=== PATIENT | female | born 1980 | race Caucasian/White ===

== ENCOUNTER 2016-09-28 19:05 | Outpatient (CLI) | payer OTHER ==
[~2016-09-28] VITALS: Ht 205.2 cm; Wt 62.0 kg
[~2016-09-28 19:05] MED LIST: FERR240T9 PO; PREN1TAB13 PO
[2016-09-28 20:42] VITALS: BP 99/60; PULSE 84; RESP 16
[2016-09-28] MEDS ORDERED: CEPH500C PO (20:49)
[2016-09-28 21:18] LABS: ADD UMIC NO; UR ASCORBIC ACID 20 mg/dL (NEGATIVE); UR BACTERIA FEW /HPF (NONE SEEN); UR BILIRUBIN (Dip) NEGATIVE (NEGATIVE); UR BLOOD (Dip) NEGATIVE (NEGATIVE); UR CLARITY SLIGHTLY CLOUDY (CLEAR); UR COLOR YELLOW (YELLOW); UR GLUCOSE (Dip) 3+ mg/dL (NEGATIVE); UR KETONES (Dip) NEGATIVE (NEGATIVE); UR LEUKOCYTE ESTERASE (Dip) NEGATIVE Leu/ul (NEGATIVE); UR MUCUS FEW /HPF (NONE SEEN); UR NITRITE (Dip) NEGATIVE (NEGATIVE); UR RBC 0 /HPF (0-5); UR SPECIFIC GRAVITY (Dip) 1.029 (1.003-1.030); UR SQUAMOUS EPITHELIAL CELL MODERATE /HPF (FEW); UR TOTAL PROTEIN (Dip) NEGATIVE (NEGATIVE); UR UROBILINOGEN (Dip) 2+ mg/dL (NEGATIVE)
--- NOTE | 2016-09-28 21:27 | RADRPT ---
PROCEDURE: US biophysical profile. CLINICAL INDICATION: labor. well-being. TECHNIQUE: Multiple sonographic images of the uterus were obtained. The images were revi ewed on a PACS workstation. COMPARISON: Pelvic ultrasound 05/09/2015. FINDINGS: There is a single live intrauterine gestation. heart rate is 148 beats per minute. The position is breech. The placenta is anterior, grade 1. The DELMER is 12.6 cm. Breathing Movement: 2 Gross Body Movement: 2 Tone: 2 Qualitative Amniotic Fluid Volume: 2 TOTAL: 8 IMPRESSION: 1. Single viable intrauterine gestation. 2. Biophysical profile = 09/18. 3. DELMER = 12.6 cm. 4. The presentation is breech. RPTAT: HH .Nacho Oswald MD, MD Date Time Electronically viewed and signed by .Nacho Oswald MD, MD on 09/28/2016 21:27 .N/
[2016-09-28] MEDS ORDERED: LACTATED RINGER'S 1,000 ML IV ONE (21:30)
[2016-09-28] MEDS ORDERED: LACTATED RINGER'S 1,000 ML IV SCH (21:30)
[2016-09-28] MEDS ORDERED: CEFAZOLIN 2 GM/50 ML (PMX) 50 ML IVPB ONE (21:30)
--- NOTE | 2016-09-28 21:36 | PN ---
Triage Information Date/Time 09/28/16 Reason for visit: severe left breast pain with pus x1 vomiting been on keflex Weeks of Gestation 35w2d /Para x6 X1 C/S Diabetes: gestational Diabetes management: diet controlled Hypertention: none Objective Vital Signs Date Time Temp Pulse Resp B/P Pulse Ox O2 Delivery O2 Flow Rate FiO2 09/28/16 20:42 98.5 84 16 99/60 Room Air Heart Rate: 140's Contractions: None Exam left breast eythematous change on skin most of breast dion on medio inferior aspect with area of fluctuation with drainage prulent Results/Medications Results 24 hrs Laboratory Tests Test 09/28/16 19:15 Urine Color YELLOW Urine Clarity SLIGHTLY CLOUDY A Urine pH 6.0 Urine Specific [place] 1.029 Urine Ketones NEGATIVE Urine Nitrite NEGATIVE Urine Bilirubin NEGATIVE Urine Urobilinogen 2+ H Urine Leukocyte Esterase NEGATIVE Urine Microscopic RBC 0 Urine Microscopic WBC 1 Urine Squamous Epithelial Cells MODERATE Urine Calcium Oxalate Crystals FEW A Urine Bacteria FEW A Urine Mucus FEW A Urine Hemoglobin NEGATIVE Urine Glucose 3+ H Urine Total Protein NEGATIVE Medications Current Medications Lactated Ringer's 1,000 ml @ 1,000 mls/hr Q1H ONCE IV ; Start 09/28/16 at 21:30 ; Stop 09/28/16 at 22:29 Lactated Ringer's 1,000 ml @ 125 mls/hr Q8H IV ; Start 09/28/16 at 21:30 Cefazolin Sodium/ Dextrose (Ancef 2 Gm/50 ml (Pmx)) 50 ml @ 100 mls/hr ONCE ONCE IVPB ; Start 09/28/16 at 21:30; Stop 09/28/16 at 21:59 Imaging Results BPP 09/18 Disposition: Discharge Assessment/Plan IUP 35w2d left breast abscess with prulent discharge Plan culture from wound gram stain ,Hb a1c BS CBC CMP nasal swab for MRSA drainage of abscess IV fluid with ancef 2gm discharge home with po dicloxacillin 500mg q6hr for 7days JOI HACKETT MD Sep 28, 2016 21:35
--- NOTE | 2016-09-28 21:44 | QN ---
Documentation Comment under the proper preparation , gram stain and culture from abscess, lesion was prepped with betadine solution with marked compression of fluctuation area ,copious amount of prulent discharge for almost 10min continuously, leave the large space on inferior aspect of left breast. pressure dressing was applied on wound . patient tolerated procedure well. JOI HACKETT MD Sep 28, 2016 21:44
[2016-09-28 22:39] LABS: BASOPHILS % 0.1 % (0.0-2.0); EOSINOPHILS # 0.1 10^3/ul (0.0-0.5); EOSINOPHILS % 1.6 % (0.0-7.0); HEMATOCRIT 28.4 % (37.0-47.0); HEMOGLOBIN 9.2 g/dl (12.0-16.0); LYMPHOCYTES # 2.1 10^3/ul (0.8-2.9); LYMPHOCYTES % 24.2 % (15.0-51.0); MEAN CORPUSCULAR HEMOGLOBIN 29.2 pg (29.0-33.0); MEAN CORPUSCULAR HGB CONC 32.4 g/dl (32.0-37.0); MEAN CORPUSCULAR VOLUME 90.2 fl (82.0-101.0); MEAN PLATELET VOLUME 10.7 fl (7.4-10.4); MONOCYTE # 0.5 10^3/ul (0.3-0.9); MONOCYTES % 5.3 % (0.0-11.0); NEUTROPHILS % 68.2 % (39.0-77.0); PLATELET COUNT 268 10^3/UL (140-415); RED BLOOD COUNT 3.15 10^6/ul (4.20-5.40); RED CELL DISTRIBUTION WIDTH 15.5 % (11.5-14.5); WHITE BLOOD COUNT 8.5 10^3/ul (4.8-10.8)
[2016-09-28 23:03] LABS: ALBUMIN 3.4 g/dl (3.3-4.9); ALBUMIN/GLOBULIN RATIO 0.94; BILIRUBIN,INDIRECT 0.1 mg/dl (0-1.1); BILIRUBIN,TOTAL 0.1 mg/dl (0.2-1.3); CALCIUM 9.1 mg/dl (8.4-10.2); CREATININE 0.42 mg/dl (0.44-1.00); POTASSIUM 3.7 mmol/L (3.5-5.1)
== END 2016-09-29 00:10 | disposition home or self-care (01) ==
LOC: OBT 19:05 → L-D 19:07 → OBT 09-29 00:10
PROVIDERS: ATTEND Obstetrics & Gynecology
DX: O26.893 Other specified pregnancy related conditions, third trimester (principal); Z3A.35 35 weeks gestation of pregnancy; N64.4 Mastodynia; O24.410 Gestational diabetes mellitus in pregnancy, diet controlled
CPT/HCPCS: 36415; 76818; 80053; 81001; 83036; 85025; 87070; 96360; 96361; J0690; J7120; Z7500; 81003; 87205; G0463

== ENCOUNTER 2016-10-17 10:11 | Outpatient (CLI) | payer OTHER ==
[~2016-10-17] VITALS: Ht 152.4 cm; Wt 82.5 kg
[2016-10-17 10:45] VITALS: BP 113/67; PULSE 72; RESP 18; Ht 152.4 cm; Wt 82.5 kg
--- NOTE | 2016-10-17 10:45 | RADRPT ---
PROCEDURE: US OB biophysical profile. CLINICAL INDICATION: decreased movements, GDM TECHNIQUE: Multiple sonographic images of the pelvis were obtained. The images were reviewed on a PACS workstation. COMPARISON: US PELVIS 09/28/2016 FINDINGS: There is a single viable intrauterine gestation. Cardiac activity is present with 159 beats per min [place]. There is a breech presentation. The placenta is anterior. There is no evidence of placental abruption. There is a normal amount of amniotic fluid with an DELMER = 15.5 cm. Biophysical profile: movement 2/2 tone 2/2. breathing 2/2 DELMER 2/2 Total 09/18 RPTAT: AA . IMPRESSION: Normal biophysical profile. . .Cirilo Pimentel MD, MD Date Time Electronically viewed and signed by .Cirilo Pimentel MD, MD on 10/17/2016 10:45 .S/
--- NOTE | 2016-10-17 10:46 | RADRPT ---
PROCEDURE: US OB. CLINICAL INDICATION: Size and dates TECHNIQUE: Multiple sonographic images of the pelvis and gravid uterus were obtained. The images were reviewed on a PACS workstation. COMPARISON: US PELVIS 09/28/2016 FINDINGS: There is a single viable intrauterine gestation. Cardiac activity is present with 152 beats per min [place]. There is a breech presentation. The placenta is anterior. There is no evidence of placental abruption. There is a normal amount of amniotic fluid with an DELMER = 15.5 cm. Measurements were made in order to determine age. The results are as follows: BPD =9.0 cm HC =32.3 cm AC =34.5 cm FL =7.0 cm Estimated gestational age of approximately 36 weeks and 6 days based on ultrasound measurements. Clinical age: 38 weeks and 0 days. The estimated date of delivery is 11/08/2016, based on ultrasound measurements. The EFW = 3206 g, 47%, based on LMP age. RPTAT: AA IMPRESSION: Single viable intrauterine gestation of approximately 36 weeks and 6 days based on ultrasound measu rements. .Cirilo Pimentel MD, MD Date Time Electronically viewed and signed by .Cirilo Pimentel MD, MD on 10/17/2016 10:46 .S/
--- NOTE | 2016-10-17 12:24 | TRIAGE ---
OB Triage Datetime Report Generated by CPN: 10/17/2016 12:24 Datetime: 10/17/2016 11:29 Stage of : OB Triage Maternal Assessment Level of Consciousness: Fully Conscious Labor Evaluation Frequency: OCCASIONAL Monitor Mode: External Duration (sec)2399: 30-50 Quality: Mild Resting Tone [place]: Relaxed Heart Rate FHR Baseline Rate: 135 Monitor Mode: External US Variability: Moderate 6-25 bpm Accelerations: 15X15 Decelerations: None Pain Assessment Pain Scale: 0 Pain Goal: 3 Vaginal Exam Membrane Status: Intact Vaginal Bleeding: None Datetime: 10/17/2016 10:42 Assessment Type: Triage Maternal Assessment Level of Consciousness: Fully Conscious DTR's/Clonus: DTRs 2+; No Clonus Headache: Denies Blurred Vision: No Respiratory Effort: Unlabored; Regular Rhythm; Equal Expansion Breath Sounds, Left: Clear and Equal Breath Sounds, Right: Clear and Equal Nausea/Vomiting: Denies RUQ Epigastric Pain: Denies Lower Extremities Edema: None Degree: None Upper Extremities Edema: None Degree: None Facial Edema: None Fall Risk Assessment History of Falling: (0) No Secondary Diagnosis: (0) No Ambulatory Aid: (0) Bedrest/Nurse Assist IV Therapy: (0) No Gait: (0) Normal/Bedrest/Immobile Mental Status: (0) Oriented to Own Ability Fall Score: 0 Fall Risk Score Definition: No Risk: No action required Datetime: 10/17/2016 10:40 Time of Arrival: 10/17/2016 10:04 EGA: 38.0 Arrived By: Ambulatory Arrived From: Office Chief Complaint: pt sent from OB OFFICE FOR BPP/EFW FOR A1DM Movement: Present Contractions: Denies/Absent Rupture of Membranes: Denies Vaginal Bleeding: None Vaginal Discharge: Denies Recent Sexual Intercouse: Denies Abdominal Trauma: Not Applicable Patient Complaints: None Time Provider Notified: 10/17/2016 10:05 Provider Notified: ABUSLEME Initial Plan: NST/BPP/EFW Datetime: 10/17/2016 10:19 Monitor Mode: External Monitor Mode: External US Datetime: 09/28/2016 19:30 EGA: 35.2
--- NOTE | 2016-10-17 13:34 | PN ---
Triage Information Date/Time Reason for visit: NST/BPP Weeks of Gestation 38+ /Para 8/7 Diabetes: gestational Diabetes management: diet controlled Hypertention: none Objective Vital Signs Date Time Temp Pulse Resp B/P Pulse Ox O2 Delivery O2 Flow Rate FiO2 10/17/16 10:45 98.0 72 18 113/67 98 Room Air Heart Rate: 140's Contractions: None Results/Medications Results 24 hrs Laboratory Tests Test 10/17/16 10:52 Bedside Glucose 107 Disposition: Discharge Assessment/Plan Return to hospital in 2 days Questions answered Precautions reviewed TYRONE YOUNG M.D. Oct 17, 2016 13:34
== END 2016-10-17 12:40 | disposition home or self-care (01) ==
LOC: OBT 10:11 → L-D 10:11 → OBT 12:40
PROVIDERS: ATTEND Obstetrics & Gynecology
DX: O24.410 Gestational diabetes mellitus in pregnancy, diet controlled (principal); Z3A.38 38 weeks gestation of pregnancy
CPT/HCPCS: 76815; 76818; 82962

== ENCOUNTER 2016-10-29 10:16 | Inpatient (IN) | payer OTHER ==
[~2016-10-29] VITALS: Ht 160 cm; Wt 83.5 kg
[~2016-10-29 10:16] MED LIST changes: +CEFAZOLIN 1 GM INJ ONE; -FERR240T9 PO; -PREN1TAB13 PO
[2016-10-29 10:36] VITALS: BP 105/58; PULSE 63; Ht 160 cm; Wt 83.5 kg
[2016-10-29] MEDS ORDERED: PRENAT PO (10:37)
--- NOTE | 2016-10-29 11:07 | RADRPT ---
PROCEDURE: OB ultrasound for biophysical profile CLINICAL INDICATION: Gestational diabetes TECHNIQUE: Multiple sonographic images of the pelvis were obtained. Transabdominal views of the g ravid uterus are available for review. The images were reviewed on a PACS workstation. COMPARISON: Biophysical profile dated 10/17/2016 FINDINGS: breathing movement = 2/2 tone = 2/2 motion = 2/2 DELMER = 2/2 DELMER = 10.6 cm Single live intrauterine with cardiac activity of 139 bpm. position is breech . The placenta is anterior. IMPRESSION: 1. Single live intrauterine gestation. 2. Biophysical profile = 09/18. 3. DELMER = 10.6 cm. 4. Breech presentation. RPTAT: HH .Lilian Quinn MD, Date Time Electronically viewed and signed by .Lilian Quinn MD, on 10/29/2016 11:07 .G/
[2016-10-29] MEDS ORDERED: METHYLERGONOVINE 0.2 MG INJ IM PRN ×3 (12:30→21:00)
[2016-10-29] MEDS ORDERED: MISOPROSTOL 200 MCG TAB PR PRN ×3 (12:30→21:00)
[2016-10-29] MEDS ORDERED: OXYTOCIN 30 UNITS/LR 500 ML IV PRN ×3 (12:30→21:00)
[2016-10-29] MEDS ORDERED: CARBOPROST 250 MCG INJ IM PRN ×3 (12:30→21:00)
[2016-10-29] MEDS: LACTATED RINGER'S 1,000 ML IV SCH ×3 (14:19→21:00)
[2016-10-29 15:23] LABS: BASOPHILS % 0.3 % (0.0-2.0); EOSINOPHILS # 0.3 10^3/ul (0.0-0.5); EOSINOPHILS % 3.3 % (0.0-7.0); HEMATOCRIT 34.8 % (37.0-47.0); HEMOGLOBIN 11.3 g/dl (12.0-16.0); LYMPHOCYTES # 2.2 10^3/ul (0.8-2.9); LYMPHOCYTES % 28.2 % (15.0-51.0); MEAN CORPUSCULAR HEMOGLOBIN 30.1 pg (29.0-33.0); MEAN CORPUSCULAR HGB CONC 32.5 g/dl (32.0-37.0); MEAN CORPUSCULAR VOLUME 92.6 fl (82.0-101.0); MEAN PLATELET VOLUME 11.4 fl (7.4-10.4); MONOCYTE # 0.4 10^3/ul (0.3-0.9); MONOCYTES % 4.4 % (0.0-11.0); NEUTROPHILS % 63.5 % (39.0-77.0); PLATELET COUNT 185 10^3/UL (140-415); RED BLOOD COUNT 3.76 10^6/ul (4.20-5.40); RED CELL DISTRIBUTION WIDTH 16.6 % (11.5-14.5); WHITE BLOOD COUNT 7.9 10^3/ul (4.8-10.8)
[2016-10-29 15:39] LABS: INR 0.99; PROTIME 13.1 Sec (12.2-14.2)
[2016-10-29 15:40] LABS: PARTIAL THROMBOPLASTIN TIME 29.9 Sec (25.0-35.0)
[2016-10-29] MEDS ORDERED: CEFAZOLIN 2 GM/50 ML (PMX) 50 ML IVPB ONE (19:28)
[2016-10-29] MEDS ORDERED: ONDANSETRON 4 MG INJ ONE ×2 (19:28→19:50)
[2016-10-29] MEDS ORDERED: CITRIC ACID/NA CITRATE 30 ML CUP ONE (19:29)
[2016-10-29] MEDS ORDERED: METOCLOPRAMIDE 10 MG INJ ONE (19:50)
[2016-10-29] MEDS ORDERED: morphine SULFATE/PF (10 MG/10 ML) INJ ONE (19:50)
[2016-10-29] MEDS ORDERED: OXYTOCIN 10 UNIT INJ ONE (19:50)
[2016-10-29] MEDS ORDERED: DEXAMETHASONE 4 MG/ML 1 ML INJ ONE (19:51)
[2016-10-29] MEDS ORDERED: PHENYLephrine (100 MCG/ML) 5ML SYG ONE (19:51)
[2016-10-29] MEDS ORDERED: KETOROLAC 30 MG INJ ONE (19:51)
[2016-10-29] MEDS ORDERED: CEFAZOLIN 2 GM/50 ML (PMX) 50 ML IV SCH (20:00)
[2016-10-29] MEDS ORDERED: ONDANSETRON 4 MG INJ IV STA (20:08)
[2016-10-29] MEDS ORDERED: CITRIC ACID/NA CITRATE 30 ML CUP PO ONE (20:30)
[2016-10-29] MEDS ORDERED: NALOXONE (0.4 MG/ML) INJ IV PRN (21:00)
[2016-10-29] MEDS ORDERED: METHYLERGONOVINE 0.2 MG TAB PO PRN (21:00)
[2016-10-29] MEDS: SENNA/DOCUSATE NA (8.6MG/50MG) TAB PO SCH (21:00)
[2016-10-29] MEDS: CEFAZOLIN 2 GM/50 ML (PMX) 50 ML IV SCH (21:00)
[2016-10-29] MEDS ORDERED: ACETAMINOPHEN 500 MG TAB PO PRN (21:00)
[2016-10-29] MEDS ORDERED: ONDANSETRON 4 MG INJ IV PRN (21:00)
[2016-10-29] MEDS ORDERED: DIPHENHYDRAMINE 50 MG INJ IV PRN (21:00)
[2016-10-29] MEDS ORDERED: KETOROLAC 30 MG INJ IV PRN (21:00)
[2016-10-29] MEDS ORDERED: NA PHOSPHATE/BIPHOS 133 ML ENEMA PR PRN (21:00)
[2016-10-29] MEDS ORDERED: morphine 2 MG INJ IV PRN (21:00)
[2016-10-29] MEDS ORDERED: morphine 4 MG/ML VIAL IV PRN (21:00)
[2016-10-29] MEDS ORDERED: LANOLIN 7 GM TUBE TOP PRN (21:00)
[2016-10-29] MEDS ORDERED: HYDROCODONE/APAP (5/325) TAB PO PRN ×3 (21:00)
[2016-10-29] MEDS ORDERED: NALBUPHINE HCL (10 MG/1 ML) INJ IV PRN (21:00)
--- NOTE | 2016-10-29 21:19 | OPR ---
Date/Time of Note Date/Time of Note DATE: 10/29/16 TIME: 21:09 Operative Report Free Text/Dictation REPEAT C/S LYSIS OF ADHESIONS Procedure Date: Oct 29, 2016 Preoperative Diagnosis TERM GDM PREVIOUS C/S VARIABLE DECELERATIONS Postoperative Diagnosis SAME PLUS PELVIC ADHESIONS BABY BOY 9 Surgeon GIUSEPPE CEE MD Subassembly Supervisor: KATIE PICKARD MD Anesthesiologist: DUSTY BROTHERS MD Estimated Blood Loss: other Specimen: none Grafts/Implants: none Complications: no Pt Condition Post Procedure: stable Disposition: PACU GIUSEPPE CEE MD Oct 29, 2016 21:19
[2016-10-29] MEDS: OXYTOCIN 30 UNITS/LR 500 ML IV SCH ×2 (21:33→22:48)
--- NOTE | 2016-10-29 21:41 | HPN ---
Date/Time of Note Date/Time of Note DATE: 10/29/16 TIME: 21:40 Interval H&P Admission Note Pt. seen H&P reviewed: No system changes H&P NUMBER [id number] GIUSEPPE CEE MD Oct 29, 2016 21:41
--- NOTE | 2016-10-29 22:17 | OPR ---
DATE OF OPERATION: 10/29/2016 OPERATION PERFORMED: Repeat low segment transverse section. PREOPERATIVE DIAGNOSIS: 1. Term . 2. Previous section. 3. Great multipara. 4. Refusal of tubal ligation. 5. Variable decelerations. 6. Gestational diabetes. POSTOPERATIVE DIAGNOSIS: 1. Term . 2. Previous section. 3. Great multipara. 4. Refusal of tubal ligation. 5. Variable decelerations. 6. Gestational diabetes. SURGEON: Julita Rausch MD ANESTHESIOLOGIST: . ANIMAL FEEDER: . OPERATIVE PROCEDURE: The patient was given spinal anesthesia, placed in the supine position. The Dao catheter was placed in the bladder. The abdomen was prepped and draped. A transverse incision was made 2 cm up the pubic bone. The abdomen was opened in layers without difficulties. The abdominal cavity was reached, and the lower uterine segment was identified, and a bladder flap was made. The Harsh retractor was placed, and the bladder flap was made. The uterus was opened in the midline with a scalpel. The incision was increased laterally on either side for about 3 inches. The baby's head was delivered, followed by the body. It was a baby boy. The cord was clamped and cut. The baby was handed over to the [employer] team. The cord blood was obtained. The placenta was removed. The uterus was swabbed out, and the cervix was opened with a ring forceps. The cavity was closed in 2 layers using number 1 Monocryl continuous suture imbedded in the 1st line of suture, and hemostasis was good. A couple of interrupted sutures were placed with an 0 chromic. The tubes and ovaries appeared to be normal, the uterus as well. There were adhesions of the omentum to the incisional area, for which the lysis was done. Interceed was applied on the incisional area, and 2-0 Vicryl suture was used to close the peritoneum. The fascia was closed with 0 PDS loop suture, 2-0 Vicryl for the subcutaneous tissue, 3-0 Monocryl subcuticular to the skin. Dermabond and Steri-Strips were also applied. The patient tolerated the procedure well and left the OR awake and stable. Sponge counts, instrument counts, needle counts were correct. Intravenous antibiotics were given for prophylaxis. Blood loss was minimal and about 500 cc, and the urine was clear at the end of the procedure. Dictated By: Julita Rausch MD /aileen/andrew /Document#: [id number]
[2016-10-29 23:30] VITALS: BP 113/63; PULSE 62; RESP 18
[2016-10-30] MEDS: LACTATED RINGER'S 1,000 ML IV SCH (03:15)
[2016-10-30] MEDS: KETOROLAC 30 MG INJ IV SCH ×4 (03:30→15:30)
[2016-10-30 04:02] VITALS: BP 96/67; PULSE 68; RESP 18
[2016-10-30] MEDS: CEFAZOLIN 2 GM/50 ML (PMX) 50 ML IV SCH ×2 (04:41→12:24)
[2016-10-30] MEDS ORDERED: ACCU-CHEK XX SCH (06:00)
[2016-10-30 08:11] VITALS: BP 108/55; PULSE 56; RESP 18
[2016-10-30] MEDS: SENNA/DOCUSATE NA (8.6MG/50MG) TAB PO SCH ×2 (08:50→21:34)
--- NOTE | 2016-10-30 09:08 | PREOPHP ---
DATE OF ADMISSION: 10/29/2016 HISTORY OF PRESENT ILLNESS: This is a 36-year-old female, 8, para 7, with the last with a , EDC 11/07/2016. This patient had come in at about 28 weeks of her . She had developed gestational diabetes that had been controlled with diet alone. She has also signed for a tubal ligation, and she had requested a repeat section. She declined the possibility for a vaginal delivery at this time, due to the size of her baby that appears to be macrosomic and also because of the previous section and her wishes for a tubal ligation. She had no other problems. ALLERGIES: SHE HAS NO ALLERGIES. SOCIAL HISTORY: No history of smoking, alcohol or drug addiction. GYNECOLOGICAL HISTORY: Only 6 vaginal deliveries, 1 . FAMILY HISTORY: Is for diabetes on her father's side. The patient has been going for her NSTs and BPPs that all have been normal. Recently she had mastitis that was drained in the emergency room by Dr. Bond and was given antibiotics and will be worked up after the delivery with ultrasound to rule out the possibility of a covert process or a lump. PHYSICAL EXAMINATION: VITAL SIGNS: She is 5 feet tall, and at this time her weight is 182 pounds. The blood pressure 108/70, pulse 80s, respirations 16. HEAD AND NECK: Normal. HEART: She has clear heart. Normal sinus rhythm. LUNGS: Clear. BREASTS: Soft, nontender, no masses. Right now, mastitis on the left side has resolved. The patient had been given dicloxacillin that did not work, and lately she was given clindamycin. ABDOMEN: Large, with cephalic presentation, macrosomic child, normal heart tones and no signs of labor at this time. PELVIC: Examination: The cervix is closed and long and posterior. EXTREMITIES: Normal, with normal pulses and no edema, normal reflexes. DIAGNOSIS: Term , grade multipara, previous section. She is undergoing tubal ligation, along with a repeat section. She has been advised of the possible risks and possible complications of the procedure, with her alternatives and options. Written information was provided. She had no more questions and agreed to go ahead with the procedure, with full understanding and no more questions. Dictated By: Julita Rausch MD /aileen/andrew /Document#: [id number]
[2016-10-30 11:26] LABS: BASOPHILS % 0.1 % (0.0-2.0); EOSINOPHILS % 0.4 % (0.0-7.0); HEMATOCRIT 29.9 % (37.0-47.0); HEMOGLOBIN 9.4 g/dl (12.0-16.0); LYMPHOCYTES # 1.7 10^3/ul (0.8-2.9); LYMPHOCYTES % 22.9 % (15.0-51.0); MEAN CORPUSCULAR HEMOGLOBIN 29.6 pg (29.0-33.0); MEAN CORPUSCULAR HGB CONC 31.4 g/dl (32.0-37.0); MEAN PLATELET VOLUME 11.7 fl (7.4-10.4); MONOCYTE # 0.5 10^3/ul (0.3-0.9); MONOCYTES % 6.2 % (0.0-11.0); NEUTROPHIL # 5.3 10^3/ul (1.6-7.5); PLATELET COUNT 184 10^3/UL (140-415); RED BLOOD COUNT 3.18 10^6/ul (4.20-5.40); RED CELL DISTRIBUTION WIDTH 16.8 % (11.5-14.5); WHITE BLOOD COUNT 7.6 10^3/ul (4.8-10.8)
--- NOTE | 2016-10-30 11:41 | PN ---
Date/Time of Note Date/Time of Note DATE: 10/30/16 TIME: 11:40 Assessment/Plan Lines/Catheters IV Catheter Type (from Nrsg): Peripheral IV Subjective 24 Hr Interval Summary Day 1 post . Afebrile, feels good and not up out of bed yet Constitutional: BM, ambulates, flatus, improved, no complaints, urine output Feeding: advancing diet Pain Control: mild Detailed Summary Eyes: no complaints ENT: no complaints Respiratory: no complaints Cardiovascular: no complaints Gastrointestinal: no complaints Genitourinary: no complaints Musculoskeletal: no complaints Skin: no complaints Neurologic: no complaints Endocrine: no complaints Lymphatic: no complaints Psychological: nl mood/affect, no complaints Immunologic: no complaints Exam/Review of Systems Vital Signs Vitals Vital Signs Date Time Temp Pulse Resp B/P Pulse Ox O2 Delivery O2 Flow Rate FiO2 10/30/16 08:11 99.7 56 18 108/55 Room Air 10/30/16 03:17 95 21 Intake and Output 10/29/16 10/29/16 10/30/16 15:00 23:00 07:00 Intake Total 2000 ml Output Total 700 ml 717 ml Balance 1300 ml -717 ml Exam Constitutional: alert, oriented, well developed Psych: nl mood/affect, no complaints Head: atraumatic, normocephalic Eyes: EOMI, nl conjunctiva, nl lids, nl sclera ENMT: mucosa pink and moist, nl external ears & nose, nl lips & teeth, nl nasal mucosa & septum Neck: non-tender, supple Respiratory: clear to auscultation, normal air movement Cardiovascular: nl pulses, regular rate and rhythm Gastrointestinal: nl liver, spleen, non-tender, soft Musculoskeletal: nl extremities to inspection, nl gait and stance Extremities: normal pulses Neurological: DRY CLEANER HAND II-XII intact, nl mental status, nl speech, nl strength Skin: nl turgor, rash or lesions Lymph: nl lymph nodes Results Result Diagram: 10/30/16 1050 GIUSEPPE CEE MD Oct 30, 2016 11:41
[2016-10-30 12:00] VITALS: BP 98/76; PULSE 68; RESP 18
[2016-10-30 16:27] VITALS: BP 91/56; PULSE 55; RESP 18
[2016-10-30 20:30] VITALS: BP 93/56; PULSE 56; RESP 18
[2016-10-30] MEDS: IBUPROFEN 800 MG TAB PO SCH (22:26)
[2016-10-31 04:17] VITALS: BP 110/61; PULSE 72; RESP 18
[2016-10-31] MEDS: IBUPROFEN 800 MG TAB PO SCH ×3 (05:38→21:34)
[2016-10-31 08:00] VITALS: BP 118/64; PULSE 56; RESP 18
[2016-10-31] MEDS: SENNA/DOCUSATE NA (8.6MG/50MG) TAB PO SCH ×2 (09:00→21:34)
[2016-10-31] MEDS: ACCU-CHEK XX SCH (10:05)
--- NOTE | 2016-10-31 10:27 | PN ---
Date/Time of Note Date/Time of Note DATE: 10/31/16 TIME: 10:17 Assessment/Plan Lines/Catheters IV Catheter Type (from Nrsg): Peripheral IV Subjective 24 Hr Interval Summary . . Constitutional: BM, ambulates, flatus, improved, no complaints, urine output Feeding: advancing diet Pain Control: well controlled Additional Comments Patient had a left breast mass that was treated recently with clindamycin and dicloxacillin for mastitis. at this time the swelling, redness, pain and drainage has been negative with no signs of infection. the issue of infection was resolved. Malignancy question is raised and a mammogram and left breast ultrasound is ordered. Patient does not have milk yet. She is day 2 post . She refused tubal ligation even after this is her eighth child. Detailed Summary Eyes: no complaints ENT: no complaints Respiratory: no complaints Cardiovascular: no complaints Gastrointestinal: no complaints Genitourinary: no complaints Musculoskeletal: no complaints Skin: no complaints Neurologic: no complaints Endocrine: no complaints Lymphatic: no complaints Psychological: nl mood/affect, no complaints Immunologic: no complaints Exam/Review of Systems Vital Signs Vitals Vital Signs Date Time Temp Pulse Resp B/P Pulse Ox O2 Delivery O2 Flow Rate FiO2 10/31/16 04:17 97.7 72 18 110/61 Room Air 10/30/16 15:16 96 21 Intake and Output 10/30/16 10/30/16 10/31/16 15:00 23:00 07:00 Intake Total 1270 ml 645 ml Output Total 500 ml 1200 ml 200 ml Balance 770 ml -555 ml -200 ml Exam Free Text/Dictation Patient is anemic but asymptomatic with no chest pain dizziness or fatigue Constitutional: alert, oriented, well developed Psych: nl mood/affect, no complaints Head: atraumatic, normocephalic Eyes: EOMI, nl conjunctiva, nl lids, nl sclera ENMT: mucosa pink and moist, nl external ears & nose, nl lips & teeth, nl nasal mucosa & septum Neck: non-tender, supple Respiratory: clear to auscultation, normal air movement Cardiovascular: nl pulses, regular rate and rhythm Gastrointestinal: nl liver, spleen, non-tender, soft Musculoskeletal: nl extremities to inspection, nl gait and stance Extremities: normal pulses Neurological: PV DESIGN ENGINEER II-XII intact, nl mental status, nl speech, nl strength Skin: nl turgor, rash or lesions Lymph: nl lymph nodes Results Result Diagram: 10/30/16 1050 GIUSEPPE CEE MD Oct 31, 2016 10:27
[2016-10-31 16:00] VITALS: BP 115/67; PULSE 89; RESP 18
--- NOTE | 2016-10-31 16:16 | RADRPT ---
PROCEDURE: Left breast ultrasound. CLINICAL INDICATION: Left breast pain and tenderness, fibrocystic disease of breast. . Le ft mastitis. TECHNIQUE: Left whole, four-quadrant, and retroareolar, breast and axillary sonography was perform ed. COMPARISON: None FINDINGS: There is a severe, left retroareolar acute mastitis with skin thickening. No discrete abscess, hematoma or fluid collection identified. No suspicious adenopathy. No discrete solid or suspicious mass. IMPRESSION: Probably benign, severe, left retroareolar acute mastitis. No abscess, fluid collection or hematoma. If the symptoms do not resolve with antibiotic treatment; surgical follow-up for tissue diagnosis i s needed. ACR BIRADS 3: Probably benign. RPTAT: AA .Zeynep Zhang MD, MD Date Time Electronically viewed and signed by .Zeynep Zhang MD, MD on 10/31/2016 16:16 .F/
[2016-10-31 20:00] VITALS: BP 135/67; PULSE 58; RESP 18
[2016-11-01 04:00] VITALS: BP 121/66; PULSE 56; RESP 18
[2016-11-01] MEDS: IBUPROFEN 800 MG TAB PO SCH (06:00)
[2016-11-01 08:15] VITALS: BP 122/77; PULSE 64; RESP 18
[2016-11-01] MEDS ORDERED: DIPHTH/TET/ACEL PERTUSS (ADULT) 0.5 ML VIAL IM* ONE (09:00)
[2016-11-01] MEDS ORDERED: MEASLES,MUMPS,RUBELLA VACCINE INJ SC* ONE (09:00)
[2016-11-01] MEDS: SENNA/DOCUSATE NA (8.6MG/50MG) TAB PO SCH (09:03)
[2016-11-01] MEDS: ACCU-CHEK XX SCH (09:14)
--- NOTE | 2016-11-01 12:00 | PD.PPDC ---
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
--- NOTE | 2016-11-01 12:07 | DS ---
Date/Time of Note Date/Time of Note DATE: 11/01/16 TIME: 12:03 Obstetrical Discharge Record Final Diagnosis Final Diagnosis: Term delivered Section Section: Repeat Complications Gestational Diabetes Augmentation: No Condition on Discharge Physical Assessment Voiding: Yes Bowel Movement: Yes Breast: Other Fundus: Firm Abdomen and Incision: Her incision is healing well with no collection of fluid. Uterus is contracted. Lochia normal. BM is normal. tolerating diet and voiding well. Ambulatory. Calf Tenderness: No Patient Condition: Good GIUSEPPE CEE MD Nov 01, 2016 12:07
== END 2016-11-01 14:00 | disposition home or self-care (01) | DRG 766 ==
LOC: L-D 10:16 → OBT 10:16 → L-D 12:20 → OBT 12:44 → L-D 19:50 → PP1 23:44
PROVIDERS: ADMIT Obstetrics & Gynecology; ATTEND Obstetrics & Gynecology
PROC: 10D00Z1 Extraction of Products of Conception, Low, Open Approach (ICD-10-PCS; principal; 2016-10-29 20:15)
DX: O36.63X0 Maternal care for excessive fetal growth, third trimester, not applicable or unspecified (principal); O24.420 Gestational diabetes mellitus in childbirth, diet controlled; O34.211 Maternal care for low transverse scar from previous cesarean delivery; O76 Abnormality in fetal heart rate and rhythm complicating labor and delivery; Z3A.39 39 weeks gestation of pregnancy; Z37.0 Single live birth; O91.213 Nonpurulent mastitis associated with pregnancy, third trimester
CPT/HCPCS: 76642; 76818; 82962; 85025; 85610; 85730; 86592; 86850; 86900; 86901; 86920; 90715; 94760; 99464; G0463; J0690; J1100; J1200; J1885; J2274; J2370; J2405; J2590; J2765; J7120